=== PATIENT | female | born 1950 | race African-American/Black ===

== ENCOUNTER 2019-10-28 05:04 | Emergency (ER) | payer MEDICARE, MEDICAID ==
[~2019-10-28] VITALS: Ht 167.6 cm; Wt 55.0 kg
--- NOTE | 2019-10-28 05:12 | NUR ---
Patient BIB [facility] c/o SOB x1 hr. Patient has a hx of COPD. Per EMS, patient just came to [place] from [place] on the 8th. Patient has not been able to fill her resp meds. EMS admin Albuterol tx x1 and Atrovent tx x1. LS were diminished in lower lobes. Patient is speaking in 2-3 word sentences. SPO2 sat WNL on RA.
--- NOTE | 2019-10-28 05:13 | NUR ---
EKG DONE ON ARRIVAL.
--- NOTE | 2019-10-28 05:23 | NUR ---
Patient states she has a wound on her RLQ abd. Bandage present, however no wound underneath. Patient c/o head pain which she's had since her xray which she is unable to say when it was. Patient has a wristband from a medical facility from 10/20/2019, however it does not say the name of the facility. Patient is unable to tell us.
[2019-10-28] MEDS ORDERED: ALBUTEROL/IPRATROPIUM 2.5MG/0.5MG, 3 ML NEB ONE (05:30)
[2019-10-28] MEDS ORDERED: ALBUTEROL/IPRATROPIUM 2.5MG/0.5MG, 3 ML ONE (05:31)
--- NOTE | 2019-10-28 05:35 | NUR ---
Admin breathing tx to patient. Patient falling asleep and having to be continuously coached.
[2019-10-28 06:11] LABS: ANION GAP 5 mmol/L (5-15); CALCIUM 9.3 mg/dL (8.5-10.1); CHLORIDE 85 mmol/L (98-107); CREATININE 0.76 mg/dL (0.55-1.02)
[2019-10-28 06:14] LABS: MEAN CORPUSCULAR VOLUME 87.7 fL (80-100); MEAN PLATELET VOLUME 6.8 fL (7.4-10.4); PLATELET COUNT 319 x10^3/uL (130-400); RED BLOOD COUNT 4.32 x10^6/uL (3.82-5.3); RED CELL DISTRIBUTION WIDTH 14.7 % (9.6-15.2)
[2019-10-28 06:15] LABS: TROPONIN I < 0.015 ng/mL (0.000-0.045)
[2019-10-28 07:00] LABS: MD YES
[2019-10-28 07:01] LABS: EOS#(MANUAL) 0.87 x10^3/uL (0.0-0.4); EOS% (MANUAL) 10 % (1-7); LYMPH#(MANUAL) 2.87 x10^3/uL (1-3.4); LYMPHS% (MANUAL) 33 % (22-44); METAMYELOCYTES# (MANUAL) 0.09 x10^3/uL (0-0); METAMYELOCYTES% (MANUAL) 1 % (0-1); MONOS#(MANUAL) 0.52 x10^3/uL (0.3-2.7); MONOS% (MANUAL) 6 % (2-9); SEG#(MANUAL) 4.35 x10^3/uL (1.8-6.8); SEGS% (MANUAL) 50 % (42-75)
[2019-10-28 07:02] LABS: <PLATELET ESTIMATE> ADEQUATE; <PLT MORPHOLOGY> NORMAL PLT MORPH; POLYCHROMASIA 1+
[2019-10-28 07:38] VITALS: BP 111/71
--- NOTE | 2019-10-28 07:38 | NUR ---
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 pt given dc instructions and helped get dressed.
[2019-10-29] MEDS ORDERED: PROAIR INH (12:50)
[2019-10-29] MEDS ORDERED: IPRA4AER INH (12:50)
[2019-10-29] MEDS ORDERED: LISINOPRIL PO (12:50)
[2019-10-29] MEDS ORDERED: DUONEB INH (12:50)
[2019-10-29] MEDS ORDERED: FLUT1DIS3 INH (12:50)
[2019-10-29] MEDS ORDERED: UMEC62.5 INH (12:50)
[2019-10-30] MEDS ORDERED: RANI150T4 PO (00:47)
[2019-10-30] MEDS ORDERED: TIZA4TAB2 PO (00:51)
[2019-10-30] MEDS ORDERED: AMLO5TAB10 PO (00:51)
== END 2019-10-28 07:59 | disposition home or self-care (01) ==
LOC: ED 07:48
DX: J44.1 Chronic obstructive pulmonary disease with (acute) exacerbation (principal); E87.1 Hypo-osmolality and hyponatremia; R07.89 Other chest pain; J02.9 Acute pharyngitis, unspecified; R51 Headache; R05 Cough; R06.00 Dyspnea, unspecified; R94.31 Abnormal electrocardiogram [ECG] [EKG]; F17.210 Nicotine dependence, cigarettes, uncomplicated
CPT/HCPCS: 36415; 71045; 80048; 83880; 84484; 85025; 93005; 94640; 99285